=== PATIENT | female | born 1990 | race African-American/Black ===

== ENCOUNTER → 2017-08-25 | Outpatient (CLI) | payer OTHER, MEDICAID ==
[2017-08-25 11:42] LABS: ABSOLUTE MONOCYTES (AUTO) 0.4 10^3/uL (0.1-1.4); BASOPHILS % (AUTO) 0.5 % (0-2); EOSINOPHILS % (AUTO) 0.5 % (0-6); HEMATOCRIT 40.8 % (36.0-47.0); HEMOGLOBIN 13.9 g/dL (12.0-15.5); LYMPHOCYTES % (AUTO) 45.1 % (13-45); MEAN CORPUSCULAR HEMOGLOBIN 28.9 pg (27.0-33.4); MEAN CORPUSCULAR HGB CONC 34.1 g/dL (32.0-36.0); MEAN CORPUSCULAR VOLUME 85 fl (80-97); MONOCYTES % (AUTO) 8.2 % (3-13); PLATELET COUNT 150 10^3/uL (150-450); RED BLOOD COUNT 4.81 10^6/uL (3.72-5.28); RED CELL DISTRIBUTION WIDTH 13.8 % (11.5-14.0); SEGMENTED NEUTROPHILS % (AUTO) 45.7 % (42-78); TOTAL CELLS COUNTED % (AUTO) 100 %; WHITE BLOOD COUNT 4.4 10^3/uL (4.0-10.5)
[2017-08-25 12:08] LABS: ALANINE AMINOTRANSFERASE 35 U/L (9-52); ALBUMIN 3.7 g/dL (3.5-5.0); ALKALINE PHOSPHATASE 119 U/L (38-126); ANION GAP 10 (5-19); ASPARTATE AMINO TRANSFERASE 29 U/L (14-36); BILIRUBIN,DIRECT 0.1 mg/dL (0.0-0.4); BILIRUBIN,TOTAL 0.1 mg/dL (0.2-1.3); BLOOD UREA NITROGEN 12 mg/dL (7-20); CALCIUM 9.3 mg/dL (8.4-10.2); CARBON DIOXIDE 29 mmol/L (22-30); CHLORIDE 105 mmol/L (98-107); GLUCOSE 101 mg/dL (75-110); POTASSIUM 4.4 mmol/L (3.6-5.0); SODIUM 143.6 mmol/L (137-145); TOTAL PROTEIN 6.7 g/dL (6.3-8.2)
[2017-08-25 12:12] LABS: C-REACTIVE PROTEIN < 5.0 mg/L (<10.0)
[2017-08-25 12:22] LABS: ERYTHROCYTE SEDIMENTATION RATE 18 mm/hr (0-20)
== END ==
LOC: WC 10:32
PROVIDERS: ATTEND Nurse Practitioner
DX: L89.024 Pressure ulcer of left elbow, stage 4 (principal)
CPT/HCPCS: 36415; 80053; 85025; 85652; 86140

== ENCOUNTER → 2017-11-17 | Outpatient (CLI) | payer OTHER, MEDICAID ==
--- NOTE | 2017-11-17 12:05 | RADIOLOGY REPORT (SQ) ---
EXAM DESCRIPTION: ELBOW LEFT >2 VIEWS COMPLETED DATE/TIME: 11/17/2017 11:47 am REASON FOR STUDY: PRESSURE ULCER STAGE 4 L89.024 PRESSURE ULCER OF LEFT ELBOW, STAGE 4 COMPARISON: Left elbow films 01/10/2015, July 2017 NUMBER OF VIEWS: Four views. TECHNIQUE: AP, lateral, and both oblique radiographic images acquired of the left elbow. LIMITATIONS: Patient unable to straighten out her arm at the elbow joint FINDINGS: MINERALIZATION: Overall diffusely osteopenic BONES: No fracture. Minimal cortical thinning along the olecranon, just deep to a skin ulcer marked with radiopaque ointment. This could indicate early involvement with olecranon osteomyelitis. JOINT: No effusion. SOFT TISSUES: Olecranon soft tissue ulcer with radiopaque ointment in the wound. OTHER: No other significant finding. IMPRESSION: Very subtle demineralization of the olecranon deep to a pressure ulcer. Findings are wo rrisome for early changes of osteomyelitis TECHNICAL DOCUMENTATION: JOB ID: [id number] [employer]- All Rights Reserved Reading location - IP/workstation name: [email or web address]
[2017-11-17 12:18] LABS: ABSOLUTE LYMPHOCYTES (AUTO) 2.3 10^3/uL (0.5-4.7); ABSOLUTE MONOCYTES (AUTO) 0.4 10^3/uL (0.1-1.4); ABSOLUTE NEUT (AUTO) 4.8 10^3/uL (1.7-8.2); BASOPHILS % (AUTO) 0.3 % (0-2); EOSINOPHILS % (AUTO) 0.6 % (0-6); HEMATOCRIT 41.5 % (36.0-47.0); LYMPHOCYTES % (AUTO) 30.9 % (13-45); MEAN CORPUSCULAR HEMOGLOBIN 28.8 pg (27.0-33.4); MEAN CORPUSCULAR HGB CONC 33.8 g/dL (32.0-36.0); MEAN CORPUSCULAR VOLUME 85 fl (80-97); MONOCYTES % (AUTO) 5.4 % (3-13); PLATELET COUNT 152 10^3/uL (150-450); RED BLOOD COUNT 4.86 10^6/uL (3.72-5.28); RED CELL DISTRIBUTION WIDTH 13.5 % (11.5-14.0); SEGMENTED NEUTROPHILS % (AUTO) 62.8 % (42-78); TOTAL CELLS COUNTED % (AUTO) 100 %; WHITE BLOOD COUNT 7.6 10^3/uL (4.0-10.5)
[2017-11-17 12:46] LABS: ALANINE AMINOTRANSFERASE 26 U/L (9-52); ALBUMIN 3.9 g/dL (3.5-5.0); ALKALINE PHOSPHATASE 119 U/L (38-126); ANION GAP 11 (5-19); ASPARTATE AMINO TRANSFERASE 26 U/L (14-36); BILIRUBIN,DIRECT 0.3 mg/dL (0.0-0.4); BILIRUBIN,TOTAL 0.4 mg/dL (0.2-1.3); BLOOD UREA NITROGEN 10 mg/dL (7-20); C-REACTIVE PROTEIN 5.2 mg/L (<10.0); CALCIUM 9.3 mg/dL (8.4-10.2); CARBON DIOXIDE 27 mmol/L (22-30); CHLORIDE 106 mmol/L (98-107); GLUCOSE 69 mg/dL (75-110); POTASSIUM 4.2 mmol/L (3.6-5.0); SODIUM 143.9 mmol/L (137-145); TOTAL PROTEIN 6.9 g/dL (6.3-8.2)
[2017-11-17 12:59] LABS: ERYTHROCYTE SEDIMENTATION RATE 16 mm/hr (0-20)
== END ==
LOC: OD 11:03
PROVIDERS: ATTEND Nurse Practitioner
DX: L89.024 Pressure ulcer of left elbow, stage 4 (principal)
CPT/HCPCS: 36415; 80053; 85025; 85652; 86140

== ENCOUNTER → 2017-12-22 | Outpatient (CLI) | payer OTHER, MEDICAID ==
--- NOTE | 2017-12-22 17:03 | RADIOLOGY REPORT (SQ) ---
EXAM DESCRIPTION: CHEST SINGLE VIEW COMPLETED DATE/TIME: 12/22/2017 4:32 pm REASON FOR STUDY: COUGH L89.024 PRESSURE ULCER OF LEFT ELBOW, STAGE 4 R05 COUGH COMPARISON: 03/17/2013 NUMBER OF VIEWS: One view. TECHNIQUE: Single frontal radiographic view of the chest acquired. LIMITATIONS: None. FINDINGS: LUNGS AND PLEURA: Low lung volumes. No opacities, masses or pneumothorax. No pleural eff usion. MEDIASTINUM AND HILAR STRUCTURES: No masses. No contour abnormality. HEART AND VASCULAR STRUCTURES: Normal size. No evidence for failure. BONES: Kang rods. HARDWARE: None in the chest. OTHER: No other significant finding. IMPRESSION: LOW LUNG VOLUMES. NO SIGNIFICANT RADIOGRAPHIC FINDING IN THE CHEST. TECHNICAL DOCUMENTATION: JOB ID: [id number] [employer]- All Rights Reserved Reading location - IP/workstation name: [email or web address]
--- NOTE | 2017-12-22 17:05 | RADIOLOGY REPORT (SQ) ---
EXAM DESCRIPTION: ELBOW LEFT >2 VIEWS COMPLETED DATE/TIME: 12/22/2017 4:32 pm REASON FOR STUDY: PRESSURE ULCER OF LEFT ELBOW, STAGE 4 L89.024 PRESSURE ULCER OF LEFT ELBOW, STAGE 4 R05 COUGH COMPARISON: 11/17/2017 NUMBER OF VIEWS: Four views. TECHNIQUE: AP, lateral, and both oblique radiographic images acquired of the left elbow. LIMITATIONS: None. FINDINGS: MINERALIZATION: Normal. BONES: No acute fracture or dislocation. No worrisome bone lesions. JOINT: No effusion. SOFT TISSUES: No soft tissue swelling. No foreign body. OTHER: No other significant finding. IMPRESSION: NEGATIVE STUDY OF THE LEFT ELBOW. NO RADIOGRAPHIC EVIDENCE OF ACUTE INJURY. No evidence for osteomyelitis. TECHNICAL DOCUMENTATION: JOB ID: [id number] [employer]- All Rights Reserved Reading location - IP/workstation name: [email or web address]
== END ==
LOC: OD 16:12
PROVIDERS: ATTEND Nurse Practitioner
DX: L89.024 Pressure ulcer of left elbow, stage 4 (principal); R05 Cough
CPT/HCPCS: 71045

== ENCOUNTER → 2018-01-15 | Outpatient (CLI) | payer OTHER, MEDICAID ==
[2018-01-15 09:52] LABS: ABSOLUTE EOSINOPHILS # (AUTO) 0.1 10^3/uL (0.0-0.6); ABSOLUTE LYMPHOCYTES (AUTO) 1.3 10^3/uL (0.5-4.7); ABSOLUTE MONOCYTES (AUTO) 0.4 10^3/uL (0.1-1.4); BASOPHILS % (AUTO) 0.6 % (0-2); EOSINOPHILS % (AUTO) 1.2 % (0-6); HEMATOCRIT 40.5 % (36.0-47.0); HEMOGLOBIN 13.6 g/dL (12.0-15.5); LYMPHOCYTES % (AUTO) 26.9 % (13-45); MEAN CORPUSCULAR HEMOGLOBIN 28.5 pg (27.0-33.4); MEAN CORPUSCULAR HGB CONC 33.6 g/dL (32.0-36.0); MEAN CORPUSCULAR VOLUME 85 fl (80-97); MONOCYTES % (AUTO) 7.7 % (3-13); PLATELET COUNT 142 10^3/uL (150-450); RED BLOOD COUNT 4.77 10^6/uL (3.72-5.28); RED CELL DISTRIBUTION WIDTH 13.6 % (11.5-14.0); SEGMENTED NEUTROPHILS % (AUTO) 63.6 % (42-78); TOTAL CELLS COUNTED % (AUTO) 100 %; WHITE BLOOD COUNT 4.7 10^3/uL (4.0-10.5)
[2018-01-15 10:31] LABS: ALANINE AMINOTRANSFERASE 25 U/L (9-52); ALKALINE PHOSPHATASE 116 U/L (38-126); ANION GAP 11 (5-19); ASPARTATE AMINO TRANSFERASE 28 U/L (14-36); BILIRUBIN,DIRECT 0.2 mg/dL (0.0-0.4); BILIRUBIN,TOTAL 0.4 mg/dL (0.2-1.3); BLOOD UREA NITROGEN 10 mg/dL (7-20); CALCIUM 9.4 mg/dL (8.4-10.2); CARBON DIOXIDE 29 mmol/L (22-30); CHLORIDE 104 mmol/L (98-107); GLUCOSE 112 mg/dL (75-110); POTASSIUM 4.3 mmol/L (3.6-5.0); SODIUM 143.6 mmol/L (137-145); TOTAL PROTEIN 6.9 g/dL (6.3-8.2)
[2018-01-15 10:39] LABS: C-REACTIVE PROTEIN < 5.0 mg/L (<10.0)
[2018-01-15 10:40] LABS: ERYTHROCYTE SEDIMENTATION RATE 15 mm/hr (0-20)
== END ==
LOC: WC 09:03
PROVIDERS: ATTEND Nurse Practitioner
DX: L89.024 Pressure ulcer of left elbow, stage 4 (principal)
CPT/HCPCS: 36415; 80053; 85025; 85652; 86140

== ENCOUNTER 2018-05-27 15:53 | Emergency (ER) | payer MEDICAID, OTHER ==
[2018-05-27 16:12] VITALS: BP 105/75
--- NOTE | 2018-05-27 17:37 | ER Document Report ---
ED Medical Screen (RME) - General Chief Complaint: Displaced G-tube Stated Complaint: G-TUBE COMPLICATIONS Time Seen by Provider: 05/27/18 17:31 Primary Care Provider: MERVAT VILA NP [Primary Care Provider] - Follow up as needed Mode of Arrival: Ambulatory Information source: Parent Notes: This is a 28-year-old female with cerebral palsy, wheelchair-bound, long-term gastrostomy tube (Yuri button) who presents to the emergency room after the G- tube fell out at daycare. The staff put the old G-tube back in place just to keep the whole patent. The mother actually has the replacement gastric button with her. The patient has otherwise been well. There is been no fevers, chills, vomiting. Her last tube feeds was 12:30 PM today so she is due for her tube feedings. TRAVEL OUTSIDE OF THE [place] IN LAST 30 DAYS: No - HPI Onset: Just prior to arrival Onset/Duration: Sudden Quality of pain: No pain Severity: None Pain Level: Denies Associated Symptoms: None Exacerbated by: Denies Relieved by: Denies Similar symptoms previously: Yes Recently seen / treated by doctor: Yes - Related Data Smoking: Non-smoker Frequency of alcohol use: None Drug Abuse: None Allergies/Adverse Reactions: No Known Allergies Allergy (Verified 12/13/14 09:38) Past Medical History - General Information source: Parent - Social History Cigarette use (# per day): No Chew tobacco use (# tins/day): No Frequency of alcohol use: None Drug Abuse: None Lives with: Family Family history: None - Medical History Medical History: Negative - Past Medical History Cardiac Medical History: Denies: Hx Coronary Artery Disease, Hx Heart Attack, Hx Hypertension Pulmonary Medical History: Reports: Hx Asthma Denies: Hx Bronchitis, Hx COPD, Hx Pneumonia Neurological Medical History: Denies: Hx Cerebrovascular Accident, Hx Seizures Endocrine Medical History: Denies: Hx Diabetes Mellitus Type 1, Hx Diabetes Mellitus Type 2 Renal/ Medical History: Denies: Hx Peritoneal Dialysis Musculoskeltal Medical History: Denies Hx Arthritis Past Surgical History: Reports: Hx Abdominal Surgery - gtube, Hx Orthopedic Surgery - corrective spinal surgery, Hx Tonsillectomy. Denies: Hx Pacemaker - Immunizations Hx Diphtheria, Pertussis, Tetanus Vaccination: Yes Review of Systems - Review of Systems Constitutional: denies: Chills, Fever EENT: No symptoms reported Cardiovascular: No symptoms reported Respiratory: No symptoms reported Gastrointestinal: See HPI Genitourinary: No symptoms reported Female Genitourinary: No symptoms reported Musculoskeletal: No symptoms reported Skin: No symptoms reported Hematologic/Lymphatic: No symptoms reported Neurological/Psychological: No symptoms reported Physical Exam - Vital signs Vitals: Pulse Resp BP Pulse Ox 83 17 105/75 98 05/27/18 16:11 05/27/18 16:11 05/27/18 16:11 05/27/18 16:11 Notes: Physical exam: GENERAL: 28-year-old female with cerebral palsy, and wheelchair, no acute distress HEAD: Atraumatic EYES: Pupils equal round and reactive to light, conjunctiva are normal. ENT: Moist mucous membranes. NECK: Supple without obvious mass LUNGS: Breath sounds clear to auscultation bilaterally and equal. No wheezes rales or rhonchi. HEART: Regular rate and rhythm without murmurs, rubs or gallops. ABDOMEN: Soft, normoactive bowel sounds. No tenderness to palpation. Gastrostomy tube in place. No guarding, no rebound. No masses appreciated. EXTREMITIES: Normal range of motion, no pitting or edema. No clubbing or cyanosis. NEUROLOGICAL: Alert, baseline as per her at the bedside. SKIN: No excoriation of the tissues around the G-tube site Course - Re-evaluation Re-evalutation: 05/27/18 18:49 Gastrostomy tube exchanged in pit. Balloon inflated with 9 cc of sterile saline. Gastric contents confirmed. Patient doing well. Will follow up with primary care doctor. - Vital Signs Vital signs: Temp Pulse Resp BP Pulse Ox 83 17 105/75 98 05/27/18 16:11 05/27/18 16:11 05/27/18 16:11 05/27/18 16:11 Procedures - Additional Procedures other Time performed: 17:35 Additional Procedures: Gastric tube replacement - Patient's mother came with a Yuri button gastric tube replacement. The old tube was taken out and inspected. The new tube was inserted without difficulty with 9 cc of sterile water. A gastric tube was then checked for gastric contents and gastric contents were confirmed. The gastric port was then closed off. Doctor's Discharge - Discharge Clinical Impression: G-tube button replacement Condition: Stable Disposition: HOME, SELF-CARE Additional Instructions: As we discussed, I would like you to get a replacement Yuri button in case this happens again in the future. Otherwise, we put 9 cc of fluid in the balloon and it sealed. We did check the gastric contents of the position is good. You can resume tube feedings. Return to the emergency room for any concerns if you think Tiffany is having pain or if there is a problem with the button. Referrals: MERVAT VILA, [employer] [Primary Care Provider] - Follow up as needed
== END 2018-05-27 17:36 | disposition home or self-care (01) ==
LOC: ER 15:53
DX: K94.29 Other complications of gastrostomy (principal); G80.9 Cerebral palsy, unspecified
CPT/HCPCS: 99282

== ENCOUNTER → 2019-02-11 | Outpatient (CLI) | payer MEDICAID ==
--- NOTE | 2019-02-11 16:22 | RADIOLOGY REPORT (SQ) ---
EXAM DESCRIPTION: ELBOW LEFT >2 VIEWS COMPLETED DATE/TIME: 02/11/2019 3:09 pm REASON FOR STUDY: PRESSURE ULCER ON LT ELBOW, STAGE 4 L89.024 PRESSURE ULCER OF LEFT ELBOW, STAGE 4 COMPARISON: Left elbow films 12/22/2017, 11/17/2017, 08/25/2017, 01/10/2015 NUMBER OF VIEWS: Four views. TECHNIQUE: AP, lateral, oblique radiographic images acquired of the left elbow. LIMITATIONS: Nonstandard radiographic positioning. Flexion contracture at the elbow joint FINDINGS: MINERALIZATION: Osteopenic BONES: No acute fracture or dislocation. No worrisome bone lesions. JOINT: No effusion. SOFT TISSUES: There is an olecranon soft tissue ulcer present. No underlying aggressive bony deminer alization of the olecranon worrisome for osteomyelitis. Mild soft tissue stranding in the fat adjace nt to the ulcer on lateral view. OTHER: No other significant finding. IMPRESSION: Olecranon soft tissue ulcer is present without plain film evidence of osteomyelitis TECHNICAL DOCUMENTATION: JOB ID: [id number] [employer]- All Rights Reserved Reading location - IP/workstation name: [email or web address]
== END ==
LOC: WC 14:51
PROVIDERS: ATTEND Nurse Practitioner Family
DX: L89.024 Pressure ulcer of left elbow, stage 4 (principal)